=== PATIENT | female | born 2000 | race Caucasian/White ===

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

== ENCOUNTER 2021-07-29 08:04 | Outpatient (CLI) | payer OTHER | END 2021-07-29 08:05 | disposition home or self-care (01) | LOC: NM 08:04 | PROVIDERS: ATTEND Internal Medicine | DX: R19.4 Change in bowel habit (principal); R11.0 Nausea | CPT/HCPCS: 78264; A9541 ==